=== PATIENT | female | born 2000 | race Caucasian/White ===

== ENCOUNTER → 2020-07-11 | Outpatient (CLI) | payer BC | END | disposition home or self-care (01) | LOC: LAB SHORT 14:25 → LAB 14:25 | DX: M54.5 Low back pain (principal) | CPT/HCPCS: 87077; 87086; 87186 ==

== ENCOUNTER → 2021-07-14 | Outpatient (CLI) | payer BC | END | disposition home or self-care (01) | LOC: LAB SHORT 10:00 | DX: N39.0 Urinary tract infection, site not specified (principal) | CPT/HCPCS: 87077; 87086; 87186 ==

== ENCOUNTER 2024-01-12 21:56 | Observation (INO) | payer BC ==
[~2024-01-12] VITALS: Ht 162.6 cm; Wt 63.6 kg
[2024-01-12 22:49] LABS: BASOPHILS ABSOLUTE AUTO 0.05 K/mm3 (0.00-0.23); BASOPHILS PERCENT AUTO 0 % (0-2); EOSINOPHILS ABSOLUTE AUTO 0.27 K/mm3 (0.00-0.68); EOSINOPHILS PERCENT AUTO 2 % (0-6); Hematocrit 40.5 % (33.0-51.0); Hemoglobin 13.7 g/dL (11.5-16.0); IMMATURE GRAN ABSOLUTE AUTO 0.04 K/mm3 (0.00-0.10); IMMATURE GRAN PERCENT AUTO 0 % (0-1); LYMPHOCYTES ABSOLUTE AUTO 2.38 K/mm3 (0.84-5.20); LYMPHOCYTES PERCENT AUTO 20 % (21-46); MONOCYTES ABSOLUTE AUTO 0.71 K/mm3 (0.16-1.47); MONOCYTES PERCENT AUTO 6 % (4-13); Mean Corpuscular HGB 30.2 pg (26.0-34.0); Mean Corpuscular HGB Conc 33.8 g/dL (31.5-36.5); Mean Corpuscular Volume 89 fL (80-100); Mean Platelet Volume 10.9 fL (9.1-12.4); NEUTROPHILS ABSOLUTE AUTO 8.48 K/mm3 (1.96-9.15); NEUTROPHILS PERCENT AUTO 71 % (41-73); Platelet Count 203 K/mm3 (150-400); RDW Coefficient Variation 11.4 % (11.7-14.2); RDW Standard Deviation 37.1 fL (35.1-46.3); Red Blood Cell Count 4.53 M/mm3 (3.80-5.20); White Blood Cell Count 11.93 K/mm3 (4.00-11.30)
[2024-01-12 23:03] LABS: Albumin, Blood 4.4 g/dL (3.4-5.0); Albumin/Globulin Ratio 1.2 (0.8-1.8); Bilirubin, Total 0.4 mg/dL (0.1-1.0); Bun/Creatinine Ratio 14.8 (12.0-20.0); Calcium, Blood 9.3 mg/dL (8.5-10.1); Creatinine, Blood 0.67 mg/dL (0.40-1.00); Globulin, Blood 3.7 g/dL (2.2-4.0); Potassium, Blood 3.8 mmol/L (3.5-5.5); Total Protein, Blood 8.1 g/dL (6.4-8.2)
[2024-01-13] VITALS (15 sets, daily range): BP systolic 87–127; BP diastolic 48–80
[2024-01-13 00:14] LABS: Source, Urine Clean Catch
[2024-01-13 00:18] LABS: Appearance, Urine Bloody (Clear); Bilirubin, Urine Neg (Neg); Blood, Urine 5+ (Neg); Color, Urine Red (P-Yellow); Glucose Qualitative, Urine Neg (Neg); Ketones, Urine Neg (Neg); Leukocyte Esterase, Urine 2+ (Neg); Nitrite, Urine Neg (Neg); Protein, Urine 3+ (Neg); Specific Gravity, Urine 1.005 (1.003-1.022); Urobilinogen, Urine NORM (Normal)
[2024-01-13 00:32] LABS: Bacteria Mod /hpf; Red Blood Cells, Urine TNTC /hpf (0-2); Squamous Epithelial Cells Few /hpf (Few)
[2024-01-13] MEDS ORDERED: Ondansetron HCl 2 MG / ML 2ML Vial IV PRN (01:40)
[2024-01-13] MEDS ORDERED: Acetaminophen 325 MG TABLET PO PRN (01:40)
[2024-01-13] MEDS ORDERED: FentaNYL Citrate 50 MCG/ML 2 ML Injection IV PRN (02:00)
[2024-01-13] MEDS ORDERED: Lactated Ringer's 1,000 ML IV SCH ×2 (02:00→10:35)
--- NOTE | 2024-01-13 02:43 | NUR ---
ARRIVAL TO UNIT PT ARRIVED TO UNIT VIA W/C FROM ER. PT ABLE TO AMB TO BED IND. PT A&O X4, VSS. PT STATES SHE WAS 6 WKS ALONG WHEN SHE HAD A MISCARRAGE, THIS HAPPENED 2 WKS AGO. PT STARTED BLEEDING HEAVILY LAST NIGHT INTO THIS MORNING. PT STATES THE BLEEDING HAS SLOWED DOWN. PT HAS BEEN NPO FOR A D&C WITH DR ARNOLD IN THE MORNING. FLUIDS RUNNING, PT DENIES ANY PAIN OR N/V AT THIS TIME. TELE PLACED. SIGNIFICANT OTHER AT BEDSIDE, LOVING AND ATTENTIVE. ALL QUESTIONS ANSWERED, NO OTHER CONCERNS AT THIS TIME, CALL LIGHT WITHIN REACH
[2024-01-13] MEDS ORDERED: CefTRIAXone Sodium 1,000 MG in NS 100 ML IV SCH (04:00)
--- NOTE | 2024-01-13 05:52 | NUR ---
SHIFT SUMMARY NO ACUTE CHANGES SINCE COMING TO THE FLOOR. PT RESTING AT THIS TIME. VSS. PLAN FOR OR THIS AM. NO OTHER CONCERNS AT THIS TIME, CALL LIGHT WITHIN REACH
[2024-01-13 07:22] LABS: BASOPHILS ABSOLUTE AUTO 0.06 K/mm3 (0.00-0.23); BASOPHILS PERCENT AUTO 1 % (0-2); EOSINOPHILS ABSOLUTE AUTO 0.17 K/mm3 (0.00-0.68); EOSINOPHILS PERCENT AUTO 2 % (0-6); Hematocrit 33.7 % (33.0-51.0); Hemoglobin 11.5 g/dL (11.5-16.0); IMMATURE GRAN ABSOLUTE AUTO 0.02 K/mm3 (0.00-0.10); IMMATURE GRAN PERCENT AUTO 0 % (0-1); LYMPHOCYTES ABSOLUTE AUTO 1.81 K/mm3 (0.84-5.20); LYMPHOCYTES PERCENT AUTO 25 % (21-46); MONOCYTES ABSOLUTE AUTO 0.46 K/mm3 (0.16-1.47); MONOCYTES PERCENT AUTO 6 % (4-13); Mean Corpuscular HGB 30.4 pg (26.0-34.0); Mean Corpuscular HGB Conc 34.1 g/dL (31.5-36.5); Mean Corpuscular Volume 89 fL (80-100); Mean Platelet Volume 10.9 fL (9.1-12.4); NEUTROPHILS ABSOLUTE AUTO 4.78 K/mm3 (1.96-9.15); NEUTROPHILS PERCENT AUTO 66 % (41-73); Platelet Count 162 K/mm3 (150-400); RDW Coefficient Variation 11.5 % (11.7-14.2); RDW Standard Deviation 36.9 fL (35.1-46.3); Red Blood Cell Count 3.78 M/mm3 (3.80-5.20)
[2024-01-13 07:43] LABS: Bun/Creatinine Ratio 11.3 (12.0-20.0); Calcium, Blood 8.6 mg/dL (8.5-10.1); Creatinine, Blood 0.62 mg/dL (0.40-1.00); Potassium, Blood 3.8 mmol/L (3.5-5.5)
[2024-01-13] MEDS ORDERED: Lactobacil 2-S.Thermo-Bifido 1 1 Cap PO SCH (09:00)
--- NOTE | 2024-01-13 11:08 | NUR ---
PT TO THE OR AT 1042
--- NOTE | 2024-01-13 11:45 | NUR ---
History, Chart, Medications and Allergies reviewed before start of procedure. Patient up to Ambulate independently. Gait steady. Pre-Op teaching done. Pt verbalizes understanding. Patient confirms NPO status and agrees with scheduled surgery. Lungs clear T/O to Auscultation.
[2024-01-13] MEDS ORDERED: Midazolam HCl 1MG / ML 2ML Vial IV ONE (11:55)
[2024-01-13] MEDS ORDERED: propofoL 40 ML IV ONE (11:56)
[2024-01-13] MEDS ORDERED: CeFAZolin Sodium 1000 mg Vial ONE (12:02)
[2024-01-13] MEDS ORDERED: Lidocaine HCl 2% 20 ML MDV ONE (12:02)
[2024-01-13] MEDS ORDERED: Dexamethasone Sod Phos 10 MG/ML 1ML VIAL ONE (12:11)
[2024-01-13] MEDS ORDERED: Ondansetron HCl 2 MG / ML 2ML Vial ONE (12:11)
[2024-01-13] MEDS ORDERED: FentaNYL Citrate 50 MCG/ML 2 ML Injection ONE (12:15)
[2024-01-13] MEDS ORDERED: Methylergonovine Maleate 0.2MG / ML 1ML Amp ONE (12:29)
[2024-01-13] MEDS ORDERED: Ketorolac Tromethamine 30mg Vial ONE (12:32)
[2024-01-13] MEDS ORDERED: OxyCODONE 5 mg/Acetamin 325 mg TABLET PO PRN (12:45)
--- NOTE | 2024-01-13 12:46 | NUR ---
01/13/24 1246 SEAN KIRBY 2000MG OF ANCEF WAS ADMINISTERED VIA IVPB AT 1210 BY GEMINI.
--- NOTE | 2024-01-13 14:49 | NUR ---
POST OP: REPORT RECEIVED FROM [employer]. PT TO UNIT AT 1320. PT IS A/O, VSS. DENIES PAIN. MINIMAL VAGINAL BLEED, PRAFUL PAD CHANGED. PT ABLE TO SIT UP AND SIP WATER. CALL LIGHT IN REACH
[2024-01-13] MEDS ORDERED: Percocet 5-3251 EACH PO (15:25)
--- NOTE | 2024-01-13 16:24 | NUR ---
OXYCODONE 5MG/ACETAMIN 325 MG (PERCOCET 5/325) 1-2 TAB PO Q4 PRN FOR PAIN SCRIPT FROM DR. ARNOLD
--- NOTE | 2024-01-13 18:02 | NUR ---
DISCHARGE: PACKET PRINTED AND PT EDUCATED. IV'S DC'D WNL, TIPS INTACT. PT GIVEN PAIN SCRIPT.
== END 2024-01-13 18:20 | disposition home or self-care (01) ==
LOC: ER 21:56 → SURS 21:57
PROVIDERS: Obstetrics & Gynecology; Physician Assistant; ADMIT Student in an Organized Health Care Education/Training Program
PROC: 10D17ZZ Extraction of Products of Conception, Retained, Via Natural or Artificial Opening (ICD-10-PCS; principal; 2024-01-13 12:00)
DX: O72.2 Delayed and secondary postpartum hemorrhage (principal)
CPT/HCPCS: 36415; 76830; 76856; 80048; 80053; 81001; 85025; 87077; 87086; 87186; 88305; 96365; 99285-25; G0378; J0690; J0696; J1100; J1885; J2210; J2250; J2405; J2704; J3010; J7120

== ENCOUNTER → 2024-06-16 | Outpatient (CLI) | payer BC ==
[~2024-06-16] MED LIST: Percocet 5-3251 EACH PO
[2024-06-22 10:12] LABS: C. TRACHOMATIS BY TMA,THINPREP Negative (Negative); N. GONORRHOEAE BY TMA,THINPREP Negative (Negative); SPECIMEN SOURCE Cervical
== END ==
LOC: LAB 18:22 → LAB SHORT 18:22
PROVIDERS: Advanced Practice Midwife
DX: Z34.90 Encounter for supervision of normal pregnancy, unspecified, unspecified trimester (principal); Z3A.00 Weeks of gestation of pregnancy not specified
CPT/HCPCS: 87491; 87591

== ENCOUNTER → 2024-09-05 | Outpatient (CLI) | payer BC ==
[2024-09-05 10:56] LABS: Adenovirus Not Detected (NOT DETECT); Bordetella pertussis Not Detected (NOT DETECT); Chlamydophila pneumoniae Not Detected (NOT DETECT); Coronavirus 229E Not Detected (NOT DETECT); Coronavirus HKU1 Not Detected (NOT DETECT); Coronavirus NL63 Not Detected (NOT DETECT); Coronavirus OC43 Not Detected (NOT DETECT); Human Metapneumovirus Detected (NOT DETECT); Human Rhinovirus/Enterovirus Not Detected (NOT DETECT); Influenza A/2009-H1 Not Detected (NOT DETECT); Influenza A/H1 Not Detected (NOT DETECT); Influenza A/H3 Not Detected (NOT DETECT); Influenza B Not Detected (NOT DETECT); Mycoplasma pneumoniae Not Detected (NOT DETECT); Parainfluenza Virus 1 Not Detected (NOT DETECT); Parainfluenza Virus 2 Not Detected (NOT DETECT); Parainfluenza Virus 3 Not Detected (NOT DETECT); Parainfluenza Virus 4 Not Detected (NOT DETECT); Respiratory Syncytial Virus Not Detected (NOT DETECT); SARS-Cov-2 (COVID-19), BioFire Not Detected (NOT DETECT)
== END | disposition home or self-care (01) ==
LOC: LAB 09:24 → LAB SHORT 09:24
PROVIDERS: Physician Assistant
DX: J06.9 Acute upper respiratory infection, unspecified (principal); R11.2 Nausea with vomiting, unspecified
CPT/HCPCS: 0202U

== ENCOUNTER → 2024-10-27 | Outpatient (CLI) | payer BC ==
[2024-10-27 17:28] LABS: Source, Urine Voided
[2024-10-27 18:41] LABS: Bilirubin, Urine Neg (Neg); Blood, Urine Neg (Neg); Glucose Qualitative, Urine Neg (Neg); Ketones, Urine Neg (Neg); Leukocyte Esterase, Urine 1+ (Neg); Nitrite, Urine Pos (Neg); Protein, Urine 1+ (Neg); Urobilinogen, Urine NORM (Normal)
[2024-10-27 18:54] LABS: Appearance, Urine Hazy (Clear); Color, Urine Pale Yellow (P-Yellow)
[2024-10-27 18:55] LABS: Bacteria Many /hpf; Red Blood Cells, Urine 0-2 /hpf (0-2); Squamous Epithelial Cells Few /hpf (Few)
== END | disposition home or self-care (01) ==
LOC: LAB 17:24 → LAB SHORT 17:24
PROVIDERS: Advanced Practice Midwife
DX: R82.90 Unspecified abnormal findings in urine (principal)
CPT/HCPCS: 81001

== ENCOUNTER → 2024-11-17 | Outpatient (CLI) | payer BC ==
[2024-11-17 13:14] LABS: Source, Urine Voided
[2024-11-17 14:48] LABS: Appearance, Urine Hazy (Clear); Bilirubin, Urine Neg (Neg); Blood, Urine Neg (Neg); Color, Urine Yellow (P-Yellow); Glucose Qualitative, Urine Neg (Neg); Ketones, Urine Neg (Neg); Leukocyte Esterase, Urine 3+ (Neg); Nitrite, Urine Neg (Neg); Protein, Urine 1+ (Neg); Urobilinogen, Urine NORM (Normal)
[2024-11-17 15:03] LABS: Bacteria Many /hpf; Squamous Epithelial Cells Many /hpf (Few); White Blood Cells, Urine 25-50 /hpf (0-5)
== END ==
LOC: LAB SHORT 13:12 → LAB 13:12
PROVIDERS: Advanced Practice Midwife
DX: R82.90 Unspecified abnormal findings in urine (principal)
CPT/HCPCS: 81001; 87086

== ENCOUNTER 2025-01-07 02:11 | Inpatient (IN) | payer BC ==
[~2025-01-07] VITALS: Ht 162.6 cm; Wt 80.5 kg
[2025-01-07] VITALS (21 sets, daily range): BP systolic 113–168; BP diastolic 58–98
[2025-01-07] MEDS ORDERED: OXYTOCIN/RINGER'S LACTATE 500 ML IV PRN (02:40)
[2025-01-07] MEDS ORDERED: Methylergonovine Maleate 0.2MG / ML 1ML Amp IM PRN ×2 (02:40→10:35)
[2025-01-07] MEDS ORDERED: ePHEDrine Sulfate 50 MG/ML 1ML Injection XX PRN (02:40)
[2025-01-07] MEDS ORDERED: FentaNYL 2mcg/ml-Bup 0.1% Epd 250 ML EPI PRN (02:40)
[2025-01-07] MEDS ORDERED: Oxytocin 10 Unit / ML Vial IM PRN (02:40)
[2025-01-07] MEDS ORDERED: Tranexamic Acid 100 ML IV PRN (02:40)
[2025-01-07] MEDS ORDERED: Carboprost Tromethamine 250 MCG/ML 1ML Amp IM PRN (02:40)
[2025-01-07] MEDS ORDERED: Ondansetron HCl 2 MG / ML 2ML Vial IV PRN (02:40)
[2025-01-07] MEDS ORDERED: Penicillin G Potassium 5,000,000 UNITS in NS 250 ML IV ONE (03:00)
[2025-01-07] MEDS ORDERED: FentaNYL Citrate 50 MCG/ML 2 ML Injection IV PRN (03:10)
[2025-01-07] MEDS ORDERED: FentaNYL Citrate 50 MCG/ML 2 ML Injection ONE (03:45)
[2025-01-07 03:46] LABS: BASOPHILS ABSOLUTE AUTO 0.04 K/mm3 (0.00-0.23); BASOPHILS PERCENT AUTO 0 % (0-2); EOSINOPHILS ABSOLUTE AUTO 0.16 K/mm3 (0.00-0.68); EOSINOPHILS PERCENT AUTO 1 % (0-6); Hematocrit 39.2 % (33.0-51.0); Hemoglobin 13.3 g/dL (11.5-16.0); IMMATURE GRAN ABSOLUTE AUTO 0.10 K/mm3 (0.00-0.10); IMMATURE GRAN PERCENT AUTO 1 % (0-1); LYMPHOCYTES ABSOLUTE AUTO 2.16 K/mm3 (0.84-5.20); LYMPHOCYTES PERCENT AUTO 14 % (21-46); MONOCYTES ABSOLUTE AUTO 0.89 K/mm3 (0.16-1.47); MONOCYTES PERCENT AUTO 6 % (4-13); Mean Corpuscular HGB Conc 33.9 g/dL (31.5-36.5); Mean Corpuscular Volume 90 fL (80-100); NEUTROPHILS ABSOLUTE AUTO 12.44 K/mm3 (1.96-9.15); NEUTROPHILS PERCENT AUTO 79 % (41-73); NRBC ABSOLUTE 0.00 K/mm3 (0.00-0.02); NRBC Auto 0.0 /100 WBC (0.0-0.2); Platelet Count 170 K/mm3 (150-400); RDW Coefficient Variation 12.1 % (11.7-14.2); RDW Standard Deviation 39.8 fL (35.1-46.3)
[2025-01-07] MEDS ORDERED: Penicillin G Potassium 2,500,000 UNITS in Dextrose 5% 100 ML IV SCH (07:00)
--- NOTE | 2025-01-07 10:25 | NUR ---
IV PITOCIN STOPPED AND 10 SHELTER IM PITOCIN GIVEN IN PLACE PER KRISSY PATIENT'S IV IS IN RIGHT AC AND PT IS UNABLE TO KEEP ARM STRAIGHT DUE TO , BLEEDING LIGHT AND UTERUS FIRM, SO 10 UNITS GIVEN IM TO MINIMIZE INTERUPTION TO AND SKIN TO SKIN
[2025-01-07] MEDS ORDERED: OXYTOCIN/RINGER'S LACTATE 500 ML IV SCH (10:35)
[2025-01-07] MEDS ORDERED: Rho(D) Immune Globulin 300 MCG / SYR IM ONE (10:40)
[2025-01-07] MEDS ORDERED: Benzocaine Topical Anesthetic Spray 60GM TOP PRN (10:40)
[2025-01-07] MEDS ORDERED: Witch Hazel/Glycerin PADS TOP PRN (10:40)
[2025-01-07] MEDS ORDERED: Ketorolac Tromethamine 30mg Vial IV PRN (10:45)
--- NOTE | 2025-01-07 13:26 | NUR ---
pt has family in the room, but reports her rt legs she can move and has feeling, but the left leg is still sluggish and has some spots. pt denies urge to void, didnt get a bag of pitocin after delivery just some IM pitocin, ptis aware we have to try to get up in 1 hour to void, ok to not shower.
--- NOTE | 2025-01-07 15:30 | NUR ---
pt got herself up to shower with her and reports voiding, she reports he legs feed good, she reports didnt call for help
[2025-01-08 02:10] VITALS: BP 127/72
[2025-01-08 08:17] VITALS: BP 127/75
--- NOTE | 2025-01-08 08:33 | NUR ---
PT DECLINES MMR, EDUCATED ON IMPORTANCE OF RECEIVING MMR BEFORE FUTURE PREGNANCIES, PT VERBALIZES UNDERSTANDING.
[2025-01-08] MEDS ORDERED: Prenatal Vit/FE Fumarate/FA 1 Tab PO SCH (09:00)
[2025-01-08 11:37] VITALS: BP 125/87
[2025-01-08 11:38] VITALS: BP 114/79
== END 2025-01-08 12:01 | disposition home or self-care (01) | DRG 807 ==
LOC: OBS 02:11 → BC 02:14 → OBS 02:36 → BC 05:21
PROVIDERS: ADMIT Advanced Practice Midwife
PROC: 10E0XZZ Delivery of Products of Conception, External Approach (ICD-10-PCS; principal; 2025-01-07)
PROC: 0UQMXZZ Repair Vulva, External Approach (ICD-10-PCS; 2025-01-07)
PROC: 3E0R3BZ Introduction of Anesthetic Agent into Spinal Canal, Percutaneous Approach (ICD-10-PCS; 2025-01-07)
PROC: 00HU33Z Insertion of Infusion Device into Spinal Canal, Percutaneous Approach (ICD-10-PCS; 2025-01-07)
DX: O48.0 Post-term pregnancy (principal); Z37.0 Single live birth; Z3A.40 40 weeks gestation of pregnancy; O99.824 Streptococcus B carrier state complicating childbirth; O77.0 Labor and delivery complicated by meconium in amniotic fluid; Z98.890 Other specified postprocedural states; O35.9XX0 Maternal care for (suspected) fetal abnormality and damage, unspecified, not applicable or unspecified; O70.0 First degree perineal laceration during delivery
CPT/HCPCS: 51702; 85025; 86850; 86900; 86901; 99214; A9270; J1885; J2405; J2540; J2590; J7050; J7120